=== PATIENT | female | born 1965 | race Caucasian/White ===

== ENCOUNTER 2017-08-11 08:32 | Day surgery (SDC) | payer OTHER ==
[~2017-08-11 08:32] MED LIST: Midazolam 1 MG/ML 2 ML SDV ONE; Propofol 200 MG/20 ML SDV ONE; fentaNYL 100 MCG/2 ML SDV ONE
[2017-08-11] MEDS ORDERED: Lactated Ringers 1,000 ML IV SCH (09:15)
--- NOTE | 2017-08-11 12:29 | OR ---
DATE OF PROCEDURE: 08/11/2017 PREOPERATIVE DIAGNOSIS: Colon cancer screening. POSTOPERATIVE DIAGNOSIS: Unremarkable colonoscopy. PROCEDURE: Colonoscopy to the cecum. SURGEON: Twin Bejarano MD. ANESTHESIA: IV anesthesia with monitored anesthesia care. INDICATION: This 52-year-old white female is referred for a colonoscopy for colon cancer screening. She had a colonoscopic exam 12 years ago. She is having no problems. I counseled her for a colonoscopy with possible biopsy and/or polypectomy, including risks and alternatives, and she gave her informed consent to proceed. DESCRIPTION OF PROCEDURE: The patient was placed in the left lateral decubitus position. IV anesthesia was administered by the Anesthesia Service. Time-out was held. A rectal exam was performed, which was unremarkable. The flexible video Olympus colonoscope was introduced through her anus, up her rectum, and out her colon all the way to the cecum. Once the cecum was reached, the scope was slowly withdrawn, examining the mucosa throughout. No mucosal abnormalities were noted. The scope was retroflexed in the rectum with the distal rectum appearing unremarkable. The scope was straightened and removed. She tolerated the procedure well. Twin Bejarano MD /[id number]
== END 2017-08-11 11:50 | disposition home or self-care (01) ==
LOC: JP.SDS 08:32
PROVIDERS: ATTEND Surgery
DX: Z12.11 Encounter for screening for malignant neoplasm of colon (principal); Z86.010 Personal history of colon polyps
CPT/HCPCS: 45378; J2250; J2704; J3010; J7120

== ENCOUNTER 2020-04-04 05:26 | Day surgery (SDC) | payer OTHER ==
[2020-04-04] MEDS ORDERED: Dextrose 5%-Lactated Ringers 1,000 ML IV SCH (06:00)
[2020-04-04] MEDS ORDERED: fentaNYL 100 MCG/2 ML SDV ONE (07:09)
[2020-04-04] MEDS ORDERED: Propofol 200 MG/20 ML SDV ONE (07:10)
[2020-04-04] MEDS ORDERED: Midazolam 1 MG/ML 2 ML SDV ONE (07:10)
[2020-04-04] MEDS ORDERED: Glycopyrrolate 0.2 MG/ML 2 ML SDV IVPUSH ONE (07:15)
--- NOTE | 2020-04-05 10:49 | OR ---
DATE OF PROCEDURE: 04/04/2020 SURGEON: Mathew Woods MD PREOPERATIVE DIAGNOSIS: Laryngopharyngeal dysphagia. POSTOPERATIVE DIAGNOSIS: Laryngopharyngeal dysphagia associated with active gastroesophageal reflux disease and moderate-sized hiatal hernia. OPERATIVE PROCEDURE: Esophagogastroduodenoscopy with biopsies of esophagogastric junction. ANESTHESIA: IV sedation. INDICATION FOR PROCEDURE: A 54-year-old female, presenting with ongoing problems with laryngopharyngeal dysphagia, a general sense of raspy and irritated throat that has been present for several months. She has been off and on some proton pump inhibitor use which she is not certain has helped to any significant degree. She does report 1 episode where she obviously had aspirated some bile. Plan is to proceed with upper GI endoscopy to try to investigate the likelihood of acid reflux as a cause of her symptoms. Plan is to proceed with upper GI endoscopy with biopsies as indicated. Potential risks including bleeding and perforation were discussed, and the patient wishes to proceed. DETAILS OF PROCEDURE: The patient was taken to the operating room and placed in a left lateral decubitus position. IV sedation was administered, after which the upper GI endoscope was passed orally through the length of the esophagus and into the stomach with retroflexion view of the fundus, and thereafter through the pyloric channel and into the proximal duodenum. Findings included some obvious redness of the hypopharynx and larynx. Photodocumentation of this was obtained. The upper esophageal sphincter, esophageal body were unremarkable. The patient did have roughly a 3 cm hiatal hernia with extremely wide open esophagogastric junction. The appearance of this provided no barrier at all from gastric contents getting up into the esophagus. It was associated with a fair bit of redness and friability of the distal esophageal mucosa. 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 Otherwise, the remainder of the stomach, pyloric channel, and duodenum to the junction of the third and fourth portions were unremarkable. At this point, biopsies were obtained from the esophagogastric junction and sent for histologic evaluation. Minimal bleeding from the biopsy sites was seen and the procedure was then concluded. The patient was taken to the recovery room in satisfactory condition. It is likely that the patient's symptoms at this point are related to gastroesophageal reflux disease. We will have her take the Protonix consistently for the next 2 weeks and we will see her back. Otherwise, some information was given regarding general management of reflux disease as well as surgical options and the patient will be seen on 04/17/2020 for followup. Mathew Woods MD /[id number]
== END 2020-04-04 09:15 | disposition home or self-care (01) ==
LOC: JP.SDS 05:26
PROVIDERS: ATTEND Surgery
DX: K21.9 Gastro-esophageal reflux disease without esophagitis (principal); K44.9 Diaphragmatic hernia without obstruction or gangrene
CPT/HCPCS: 43239; J2250; J2704; J3010; J3490; J7121; 88305